=== PATIENT | female | born 1955 | race Hispanic/Latino ===

== ENCOUNTER 2018-06-29 14:25 | Outpatient (CLI) | payer SELFPAY ==
--- NOTE | 2018-06-29 15:43 | Ultrasound Report ---
TARGETED LEFT BREAST ULTRASOUND: 06/29/18 14:25:00 CLINICAL: Mammographic asymmetry. COMPARISON: 05/25/18 FINDINGS: Ultrasound of the inner left breast was performedand demonstrated a solid hypoechoic irregular mass at 8 o'clock 4 cm from the nipple. It measures 9 x 5 x 6 mm and correlates with the mammographic asymmetry. The mass is within an island of fibroglandular structures with prominent TDLUs. IMPRESSION: A solid 9 mm left breast mass at 8 o'clock 4 cm from the nipple. The morphology suggests that it may be benign fibrocystic change. However, recommend ultrasound-guided needle biopsy to exclude malignancy. BI-RADS 4--Suspicious I discussed the findings and the recommendation for needle core biopsy with the patient at the time of the examination.
== END 2018-06-29 14:26 | disposition home or self-care (01) ==
LOC: SPVWC 14:25
PROVIDERS: ATTEND Surgery
DX: N63.24 Unspecified lump in the left breast, lower inner quadrant (principal)

== ENCOUNTER 2018-07-10 16:09 | Outpatient (CLI) | payer OTHER | END 2018-07-10 16:10 | disposition home or self-care (01) | LOC: LABHHL 16:09 | PROVIDERS: ATTEND Surgery | DX: N63.22 Unspecified lump in the left breast, upper inner quadrant (principal) | CPT/HCPCS: 88305 ==